=== PATIENT | male | born 1975 | race African-American/Black ===

== ENCOUNTER 2017-06-14 15:45 | Emergency (ER) | payer MEDICAID | END 2017-06-14 17:46 | disposition home or self-care (01) | LOC: D.ER 15:45 | DX: S11.91XA Laceration without foreign body of unspecified part of neck, initial encounter (principal); Y04.2XXA Assault by strike against or bumped into by another person, initial encounter; Y93.89 Activity, other specified; Y92.019 Unspecified place in single-family (private) house as the place of occurrence of the external cause; E11.9 Type 2 diabetes mellitus without complications ==

== ENCOUNTER 2018-03-18 13:46 | Emergency (ER) | payer MEDICAID ==
[~2018-03-18] VITALS: Ht 185.4 cm; Wt 131.8 kg
[2018-03-18 14:34] VITALS: Ht 185.4 cm; Wt 131.8 kg
[2018-03-18] MEDS ORDERED: GRISEOFULVIN PO (16:18)
[2018-03-18 16:41] VITALS: BP 120/67
== END 2018-03-18 16:41 | disposition home or self-care (01) ==
LOC: D.ER 13:46
DX: B35.0 Tinea barbae and tinea capitis (principal); R51 Headache